=== PATIENT | female | born 1980 | race Caucasian/White ===

== ENCOUNTER 2018-12-29 00:40 | Observation (INO) | payer OTHER ==
[2018-12-29] VITALS (8 sets, daily range): BP systolic 99–132; BP diastolic 57–88; PULSE 74–92; TEMP 98.1–98.7
[~2018-12-29] VITALS: Ht 170.2 cm; Wt 116.4 kg
[2018-12-29] MEDS ORDERED: [UNRECOGNIZED DRUG - OTHER] (00:49)
[2018-12-29 01:51] LABS: MUCOUS Present /lpf; PH 7 (5-8); URINE APPEARANCE Clear; URINE BACTERIA None Seen /hpf; URINE BILIRUBIN Negative (NEGATIVE); URINE BLOOD Negative (NEGATIVE); URINE COLOR Yellow; URINE GLUCOSE Negative (NEGATIVE); URINE KETONE Trace (NEGATIVE); URINE LEUKOCYTE ESTERASE Negative (NEGATIVE); URINE NITRATE Negative (NEGATIVE); URINE PROTEIN(semi-quant) Negative (NEGATIVE); URINE RBC 0-2 /hpf; URINE WBC 0-2 /hpf
[2018-12-29 02:11] LABS: COLLECTION METHOD CLEAN CATCH
[2018-12-29 04:11] LABS: BASO % 0.3 % (0.0-2.0); EOS % 0.1 % (0-4.0); GRAN # 12.7 (1.4-6.5); GRAN % 88.8 % (42.2-75.2); LYMPH # 0.8 (1.2-3.4); LYMPH % 5.7 % (20.0-51.0); MEAN CELL VOLUME 86 fl (80.0-100.0); MEAN CORPUSCULAR HEMOGLOBIN 27 pg (27.0-31.0); MEAN CORPUSCULAR HGB CONC 31 g/dl (33.0-37.0); MEAN PLATELET VOLUME 11.9 fl (7.4-10.4); MONO # 0.7 (0.1-0.6); MONO % 4.8 % (1.7-9.3); PLATELET COUNT 195 K/mm3 (130-400); RED BLOOD COUNT 4.07 M/mm3 (4.10-5.30); REDCELL DISTRIBUTION WIDTH-CV 14.1 % (11.5-14.5)
[2018-12-29 04:20] LABS: ALBUMIN 3.8 gm/dL (3.5-5.0); BILIRUBIN,TOTAL 0.6 mg/dL (0.0-1.0); CALCIUM 8.5 mg/dL (8.4-10.2); CREATININE, serum 0.71 mg/dL (0.52-1.25); POTASSIUM 3.9 mmol/L (3.4-5.0)
--- NOTE | 2018-12-29 09:00 | NUR ---
Initial visit; Patient thanked Food Service Clerk for looking in on her and offering comfort and to keep her in Food Service Clerk's prayers.
--- NOTE | 2018-12-29 09:39 | NUR ---
CECILIA and SW student met with the patient and patient's , Luis Eduardo, to discuss discharge plan. The patient lives in [place] with her and family. The patient does not use any DME and reports independence with ADLs. The patient's PCP is Dr. Rene and [place] [facility] [place] reports no difficulties obtaining her medications. The patient does not have a DPOA-HC completed but was interested in obtaining the form. SW provided the form. The patient's reports that they may have as a secondary insurance. SW informed the patient and patient's that if they do find that information, they can bring it to the hospital for financial counseling to add to their file. CECILIA consulted financial counselor, Haylee. The patient plans to return home upon discharge. No additional needs at this time.
[2018-12-29] MEDS ORDERED: COLACE 100100 MG/CAP PO (14:27)
[2018-12-29] MEDS ORDERED: PERCOCET 325 MG1 TA2 PO (14:28)
[2018-12-29] MEDS ORDERED: AMOXICILLIN 8751 TAB PO (14:28)
[2018-12-29] MEDS ORDERED: MOTRIN 600600 MG/TAB PO (14:28)
--- NOTE | 2018-12-29 18:09 | NUR ---
Discharge instructions reviewed with patient and spouse, verbalized understanding. Discharged via wheelchair to auto/home with spouse at 1810.
== END 2018-12-29 18:10 | disposition home or self-care (01) ==
LOC: COL.ER 00:40 → SURG 06:34
PROVIDERS: Emergency Medicine; ADMIT Surgery
DX: K35.80 Unspecified acute appendicitis (principal); D64.9 Anemia, unspecified
CPT/HCPCS: G0378; J1100; J1885; J2405; J2543; J2550; J2704; J3010; J7030; J7120; Q9967

== ENCOUNTER → 2021-09-14 | Outpatient (CLI) | payer OTHER ==
[~2021-09-14] MED LIST: AMOXICILLIN 8751 TAB PO; COLACE 100100 MG/CAP PO; MOTRIN 600600 MG/TAB PO; PERCOCET 325 MG1 TA2 PO; [UNRECOGNIZED DRUG - OTHER]
== END ==
LOC: MC.RAD 09:50
DX: R92.8 Other abnormal and inconclusive findings on diagnostic imaging of breast (principal)